=== PATIENT | male | born 1960 | race Caucasian/White ===

== ENCOUNTER 2018-09-17 09:00 | Outpatient (RCR) | payer OTHER, SELFPAY ==
--- NOTE | 2018-07-02 16:30 | PT.OIE ---
Current Diagnoses Calcific tendinitis of unspecified shoulder (07/02/18) Pain in unspecified hand (07/02/18) Provider Visit Care Team Role Provider Type Charbel Yoo MD Attending Provider Non-Staff Primary Care Provider Specialty: Medical Address: [address] [place] [address], [id number] Email: Physical Therapy Initial Evaluation PT-OP-A Visit Information Start: 06/29/18 16:02 Freq: Status: Active Protocol: Document 07/02/18 09:03 LRN (Rec: 07/02/18 10:01 LRN [id number]) Out-Patient Physical Therapy Visit Information Visit Information Visit Type Initial Evaluation Visit Start Time 09:03 Visit Stop Time 10:00 Total Visit Minutes 57 Visit Number 1 Number of HOUSE OFFICER Visits 0 Evaluation Information Evaluation Date 07/02/18 Precautions Precautions Diabetes type II Controlled HBP PT-OP-B Current Condition Start: 06/29/18 16:02 Freq: Status: Active Protocol: Document 07/02/18 09:03 LRN (Rec: 07/02/18 10:01 LRN [id number]) Current Condition History of Current Condition Onset Date 1.5 yrs ago Current Complaints General pain in Trey hand, joints, wrist, and shoulders. Can't make a fist. History of Current Condition Pt reports diffuse pain in the bilateral hand/wrist. He reports similar symptoms to trey shoulders 2.5 yrs ago when he was started on statin medications. He had diffuse pain in the shoulders and pain around the shoulder joints with AB. He states he stopped taking Crestor in May 2017 and restarted in Jan 2018 because of no improvement with stopping of the statin medication. He reports having 2 cortisone injections in the shoulders with a positive response and pain relief for 1 month following the last injection. He denies any injuries to the neck or UE's. He does not notice swelling in the hands and states he has had no change in diet. He is on a low carb diet due to his diabetes. He does state that his blood sugars have increased since the holidays 2 months ago. Prior Treatments and Tests Rheumatology testing 2 months ago were negative, all tests were normal. Pt reports X-rays of shoulder showed bilateral calcific tendinitis. Future Testing and Treatments Planned None. Developmental History Developmental History Family MD. Fajardo. Treatment Goals Patient/Caregiver Goals Goal: turn off bedside light without pain, open a jar without pain. ADLS without pain (dressing). Prior Functional Status Baseline Function- ADL's Independent Baseline Function- Mobility Independent Current Functional Impairments (Reported) Functional Limitations- ADL's Dressing, carrying objects, opening jars, activities that involve use of hand Personal Factors Other Personal Factors That May Effect Family physician Therapy/Recovery Diabetes type II PT-OP-E Functional Tests Start: 06/29/18 16:02 Freq: Status: Active Protocol: Document 07/02/18 09:03 LRN (Rec: 07/02/18 16:20 LRN [id number]) Functional Tests Apley's Scratch Test Action 1: The subject is instructed to touch the opposite shoulder with his/her hand. This motion checks Glenohumeral adduction, internal rotation , horizontal adduction and scapular protraction Action 2: The subject is instructed to place his/her arm overhead and reach behind the neck to touch his/her upper back. This motion checks Glenohumeral abduction, external rotation and scapular upward rotation and elevation. Action 3: The subject puts his/her hand on the lower back and reaches upward as far as possible. This motion checks glenohumeral adduction, internal rotation and scapular retraction with downward rotation Action 2- Left Subocciptal Protuberance Action 2- Right Subocciptal Protuberance Action 3- Left Mid Sacrum Action 3- Right Mid Sacrum PT-OP-F Manual Assessment Start: 06/29/18 16:02 Freq: Status: Active Protocol: Document 07/02/18 09:03 LRN (Rec: 07/02/18 16:20 LRN [id number]) Manual Assessments Joint Mobility Assessment Joint Mobility Assessment Hyper mobility of L Glenohumeral joint. Decreased mobility of Thoracic upper spine. Decreased mobility of finger and thumb joints (MCP's, PIP's , DIP's), Decreased mobility of wrist joints. PT-OP-H Neuro Start: 06/29/18 16:02 Freq: Status: Active Protocol: Document 07/02/18 09:03 LRN (Rec: 07/02/18 16:20 LRN [id number]) Sensation Evaluation Gross Sensation Gross Sensation WNL Deep Tendon Reflex & Clonus Assessment Deep Tendon Reflex Right Brachioradialis Deep Tendon Reflex 0 Absent Right Bicep Deep Tendon Reflex 0 Absent Left Brachioradialis Deep Tendon Reflex 1+ Diminished Left Bicep Deep Tendon Reflex 1+ Diminished Bilateral Tricep Deep Tendon Reflex 0 Absent PT-OP-J Posture/Palpation/Skin Start: 06/29/18 16:02 Freq: Status: Active Protocol: Document 07/02/18 09:03 LRN (Rec: 07/02/18 16:20 LRN [id number]) Posture Evaluation Comments Posture Comments Low L shoulder & scapula, decreased curvature of cervical, thoracic and lumbar spine. Flattened upper thoracic spine with notable Dowagers hump. Mild forward head, arms in internal rotation. PT-OP-K Range of Motion Start: 06/29/18 16:02 Freq: Status: Active Protocol: Document 07/02/18 09:03 LRN (Rec: 07/02/18 16:20 LRN [id number]) Cervical Spine Range of Motion Cervical Spine Active Degrees Rotation Left 60 Rotation Right 65 ROM Limitations Soft Tissue Tightness Comments Flexion & Extension is WNL Shoulder Goniometric Range of Motion Shoulder Measured in Degrees Left Active Testing Position Sitting Flexion 160 Abduction 160 Internal Rotation Behind Back (text) Mid Sacrum Shoulder ROM Limitations Comments In Supine: Shoulder: AROM: ER is 45 deg's left, 50 deg's right. IR is 45 deg's left, 45 deg's right. Wrist Goniometric Range of Motion Wrist Measured in Degrees Right Extension Active (degrees) 45 Left Extension Active (degrees) 30 ROM Limitations Wrist Limitations of Range of Motion Soft Tissue Tightness Pain Comments Wrist AROM: Generally decreased on 25-50% left, 25% right. Finger Goniometric Range of Motion Finger ROM Limitations Finger ROM Limitations Soft Tissue Tightness Pain Comments Pt unable to make a fist bilaterally. Thumb Goniometric Range of Motion Thumb ROM Limitations Thumb Range of Motion Limitations Soft Tissue Tightness Pain Comments Decreased PROM ~25-40%, left worse than right. PT-OP-L Special Tests Start: 06/29/18 16:02 Freq: Status: Active Protocol: Document 07/02/18 09:03 LRN (Rec: 07/02/18 16:20 LRN [id number]) Special Tests Cervical Spine Special Tests Upper Limb Tension Test Test Results Positive bilaterally Traction Test Results Negative Foraminal Compression Test Results Negative Shoulder Special Tests Elevation Impingement Test Results Positive bilaterally PT-OP-M Strength Start: 06/29/18 16:02 Freq: Status: Active Protocol: Document 07/02/18 09:03 LRN (Rec: 07/02/18 16:20 LRN [id number]) Cervical Spine Strength Cervical Spine Manual Muscle Testing Testing Position Sitting Reason Not Measured WFL Shoulder Strength Shoulder Manual Muscle Testing Right Comments Generally 5/5 Left Internal Rotation 5 Normal Comments Generally 4-/5, except as noted above Wrist Strength Wrist Manual Muscle Testing Right Reason Not Measured WFL Left Reason Not Measured WFL Pain Comments Shaking of UE limb with MMT. Finger/Thumb Strength Finger Manual Muscle Testing Right Thumb Reason Not Measured WFL Comments Generally 5/5, Opposition is 5 /5. Left Thumb Comments Generally 5/5 except Opposition is 4-/5 except with 5th digit is 3/5. Hand Fleet Manager/Dispatch/Pinch Strength Hand Dominance Hand Dominance Right PT-OP-Q Treatments Start: 06/29/18 16:02 Freq: Status: Active Protocol: Document 07/02/18 09:03 LRN (Rec: 07/02/18 16:20 LRN [id number]) Self-Care/Home Management Treatment Education Patient Education Home Exercise Program Activities Self-Care/Home Management Activities Reviewed and issued HEP: Bilateral: Median and Radial nerve stretch, Cervical Sidebend stretch for UT. PT-OP-T Assessment and Plan Start: 06/29/18 16:02 Freq: Status: Active Protocol: Document 07/02/18 09:03 LRN (Rec: 07/02/18 10:01 LRN [id number]) Physical Therapy Assessment Rehab Potential Rehabilitation Potential Good Evaluation Complexity Number of Personal Factors/Comorbidities 1-2 Number of Body Systems Impaired 4 or More Clinical Presentation at Evaluation Evolving Impairments Impairments Functional Activities Pain Posture ROM Sensation Soft Tissue Mobility Strength Other Concerns Age Related Concerns Impact on work and social environment. 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 Diabetes, type II Goals Wrist/hand strength Impairment Decreased wrist/hand strength. Short Term Goal (STG) Pt will be independent on wrist/hand strengthening HEP STG Duration 07/09/18 Fdc Goal (LTG) Improve forearm/wrist/panel flow machine operator strength such that the pt will be able to remove jar lids with mild difficulty. 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 LTG Duration 10/01/18 Wrist PROM Impairment Decreased bilateral wrist mobility (L>R) Short Term Goal (STG) Pt will be independent on an initial HEP to restore wrist/ forearm mobility. Fdc Goal (LTG) Improve wrist and shoulder mobility such that the pt will be able to turn off his bedside light without pain. LTG Duration 10/01/18 Shoulder ROM Impairment Decreased AROM Short Term Goal (STG) Pt will be independent on a ROM HEP for the shoulders. STG Duration 07/16/18 Fdc Goal (LTG) Improve bilateral shoulder mobility such that the pt will be able to don jacket and clothes with pain no greater than 1/10. LTG Duration 10/01/18 Assessment Summary Assessment Pt presents with limited bilateral UE mobility of the neck, shoulders, wrists and hands. He has decreased strength of the L UE compared to the right with difficulty holding a sustained smooth contraction against resistance on the left, indicating weakness or possible neural involvement. The pt appears to have a mechanical dysfunction of the lower cervical and upper thoracic spine and soft tissue dysfunction of the neck, shoulders, wrists and hands limiting mobility and probably strength. He demonstrates + neural tension in the UE's with the left being worse than the right. He is positive for impingement syndrome and demonstrates decreased mobility of his shoulder external and internal rotators and decreased scapulohumeral rhythm (L worse than R). The pt will benefit from skilled physical therapy to improve neck and bilateral UE mobility and strength leading to improved functional ability, and to progress the pt with a shoulder rehabilitation program for rotator cuff and scapular stabilization strengthening. Typically therapy would be recommended 2x/week, but due to the pt's work schedule we will start with 1x/week and the pt focusing on progressing on a HEP. Physical Therapy Plan Frequency and Duration Frequency of Treatment 1x/Week Plan of Care Start Date 07/02/18 Plan of Care End Date 10/01/18 Therapeutic Interventions Therapeutic Interventions Aquatic Therapy Home Exercise Program Joint Mobilizations Manual Therapy Neuromuscular Re-education Patient/Caregiver Education Self-Care/Home Management Soft Tissue Mobilization Taping Therapeutic Activities Therapeutic Exercises Modalities Cold Pack/Ice Massage Electric Stimulation Hot Packs Iontophoresis Paraffin Bath Traction- Mechanical Ultrasound Next Visit Focus/Plan Next Note Type Treatment Note Next Visit Plan JMT/STM to neck and upper thoracic, checking VA prior to mobilization, panel flow machine operator strength check, review HEP (neural stretch and add ulnar stretch) , recheck ROM of finger joints , Paraffin Dip and ROM ex's with assessment of response to therapy.
--- NOTE | 2018-07-02 16:30 | PT.OPPOC ---
Current Diagnoses Calcific tendinitis of unspecified shoulder (07/02/18) Pain in unspecified hand (07/02/18) Provider Visit Care Team Role Provider Type Charbel Yoo MD Attending Provider Non-Staff Primary Care Provider Specialty: Medical Address: [address] [place] [address], [id number] Email: Plan Of Care PT-OP-T Assessment and Plan Start: 06/29/18 16:02 Freq: Status: Active Protocol: Document 07/02/18 09:03 LRN (Rec: 07/02/18 10:01 LRN [id number]) Physical Therapy Assessment Rehab Potential Rehabilitation Potential Good Evaluation Complexity Number of Personal Factors/Comorbidities 1-2 Number of Body Systems Impaired 4 or More Clinical Presentation at Evaluation Evolving Impairments Impairments Functional Activities Pain Posture ROM Sensation Soft Tissue Mobility Strength Other Concerns Age Related Concerns Impact on work and social environment. 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 Diabetes, type II Goals Wrist/hand strength Impairment Decreased wrist/hand strength. Short Term Goal (STG) Pt will be independent on wrist/hand strengthening HEP STG Duration 07/09/18 Solids Control Technician Goal (LTG) Improve forearm/wrist/education and outreach coordinator strength such that the pt will be able to remove jar lids with mild difficulty. LTG Duration 10/01/18 Finger mobility Impairment Decreased finger mobility by 25-50% bilaterally (L>R) Solids Control Technician Goal (LTG) Improve finger flexion mobility of digits 1-5 to normal PROM with end-range stiffness so the pt can education and outreach coordinator jar lids at home without increased pain. LTG Duration 10/01/18 Wrist PROM Impairment Decreased bilateral wrist mobility (L>R) Short Term Goal (STG) Pt will be independent on an initial HEP to restore wrist/ forearm mobility. Senior Care Goal (LTG) Improve wrist and shoulder mobility such that the pt will be able to turn off his bedside light without pain. LTG Duration 10/01/18 Shoulder ROM Impairment Decreased AROM Short Term Goal (STG) Pt will be independent on a ROM HEP for the shoulders. STG Duration 07/16/18 Senior Care Goal (LTG) Improve bilateral shoulder mobility such that the pt will be able to don jacket and clothes with pain no greater than 1/10. LTG Duration 10/01/18 Assessment Summary Assessment Pt presents with limited bilateral UE mobility of the neck, shoulders, wrists and hands. He has decreased strength of the L UE compared to the right with difficulty holding a sustained smooth contraction against resistance on the left, indicating weakness or possible neural involvement. The pt appears to have a mechanical dysfunction of the lower cervical and upper thoracic spine and soft tissue dysfunction of the neck, shoulders, wrists and hands limiting mobility and probably strength. He demonstrates + neural tension in the UE's with the left being worse than the right. He is positive for impingement syndrome and demonstrates decreased mobility of his shoulder external and internal rotators and decreased scapulohumeral rhythm (L worse than R). The pt will benefit from skilled physical therapy to improve neck and bilateral UE mobility and strength leading to improved functional ability, and to progress the pt with a shoulder rehabilitation program for rotator cuff and scapular stabilization strengthening. Typically therapy would be recommended 2x/week, but due to the pt's work schedule we will start with 1x/week and the pt focusing on progressing on a HEP. Physical Therapy Plan Frequency and Duration Frequency of Treatment 1x/Week Plan of Care Start Date 07/02/18 Plan of Care End Date 10/01/18 Therapeutic Interventions Therapeutic Interventions Aquatic Therapy Home Exercise Program Joint Mobilizations Manual Therapy Neuromuscular Re-education Patient/Caregiver Education Self-Care/Home Management Soft Tissue Mobilization Taping Therapeutic Activities Therapeutic Exercises Modalities Cold Pack/Ice Massage Electric Stimulation Hot Packs Iontophoresis Paraffin Bath Traction- Mechanical Ultrasound Next Visit Focus/Plan Next Note Type Treatment Note Next Visit Plan JMT/STM to neck and upper thoracic, checking VA prior to mobilization, education and outreach coordinator strength check, review HEP (neural stretch and add ulnar stretch) , recheck ROM of finger joints , Paraffin Dip and ROM ex's with assessment of response to therapy. Plan of Care Dates Plan of Care Start Date 07/02/18 Plan of Care End Date 10/01/18 Please Sign and Return: I have reviewed this Plan of Care and certify that the skilled therapy services above are required to meet the patient?s needs. Physician Signature Date Printed Name and Credentials Clinical Instructor Signature Printed Name and Credentials
--- NOTE | 2018-07-02 16:30 | PT.OPPOC ---
Current Diagnoses Muscle weakness (generalized) (07/02/18) Calcific tendinitis of unspecified shoulder (07/02/18) Pain in unspecified hand (07/02/18) Other symptoms and signs involving the musculoskeletal system (07/02/18) Provider Visit Care Team Role Provider Type Charbel Yoo MD Attending Provider Non-Staff Primary Care Provider Specialty: Medical Address: [address] [place] [address], [facility] Email: Plan Of Care PT-OP-T Assessment and Plan Start: 06/29/18 16:02 Freq: Status: Active Protocol: Document 07/02/18 09:03 LRN (Rec: 07/02/18 10:01 LRN [id number]) Physical Therapy Assessment Rehab Potential Rehabilitation Potential Good Evaluation Complexity Number of Personal Factors/Comorbidities 1-2 Number of Body Systems Impaired 4 or More Clinical Presentation at Evaluation Evolving Impairments Impairments Functional Activities Pain Posture ROM Sensation Soft Tissue Mobility Strength Other Concerns Age Related Concerns Impact on work and social environment. 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 Diabetes, type II Goals Wrist/hand strength Impairment Decreased wrist/hand strength. Short Term Goal (STG) Pt will be independent on wrist/hand strengthening HEP STG Duration 07/09/18 Long-Term Goal (LTG) Improve forearm/wrist/construction technician strength such that the pt will be able to remove jar lids with mild difficulty. LTG Duration 10/01/18 Finger mobility Impairment Decreased finger mobility by 25-50% bilaterally (L>R) Production Honing Machine Operator Goal (LTG) Improve finger flexion mobility of digits 1-5 to normal PROM with end-range stiffness so the pt can construction technician jar lids at home without increased pain. LTG Duration 10/01/18 Wrist PROM Impairment Decreased bilateral wrist mobility (L>R) Short Term Goal (STG) Pt will be independent on an initial HEP to restore wrist/ forearm mobility. Long-Term Goal (LTG) Improve wrist and shoulder mobility such that the pt will be able to turn off his bedside light without pain. LTG Duration 10/01/18 Shoulder ROM Impairment Decreased AROM Short Term Goal (STG) Pt will be independent on a ROM HEP for the shoulders. STG Duration 07/16/18 Long-Term Goal (LTG) Improve bilateral shoulder mobility such that the pt will be able to don jacket and clothes with pain no greater than 1/10. LTG Duration 10/01/18 Assessment Summary Assessment Pt presents with limited bilateral UE mobility of the neck, shoulders, wrists and hands. He has decreased strength of the L UE compared to the right with difficulty holding a sustained smooth contraction against resistance on the left, indicating weakness or possible neural involvement. The pt appears to have a mechanical dysfunction of the lower cervical and upper thoracic spine and soft tissue dysfunction of the neck, shoulders, wrists and hands limiting mobility and probably strength. He demonstrates + neural tension in the UE's with the left being worse than the right. He is positive for impingement syndrome and demonstrates decreased mobility of his shoulder external and internal rotators and decreased scapulohumeral rhythm (L worse than R). The pt will benefit from skilled physical therapy to improve neck and bilateral UE mobility and strength leading to improved functional ability, and to progress the pt with a shoulder rehabilitation program for rotator cuff and scapular stabilization strengthening. Typically therapy would be recommended 2x/week, but due to the pt's work schedule we will start with 1x/week and the pt focusing on progressing on a HEP. Physical Therapy Plan Frequency and Duration Frequency of Treatment 1x/Week Plan of Care Start Date 07/02/18 Plan of Care End Date 10/01/18 Therapeutic Interventions Therapeutic Interventions Aquatic Therapy Home Exercise Program Joint Mobilizations Manual Therapy Neuromuscular Re-education Patient/Caregiver Education Self-Care/Home Management Soft Tissue Mobilization Taping Therapeutic Activities Therapeutic Exercises Modalities Cold Pack/Ice Massage Electric Stimulation Hot Packs Iontophoresis Paraffin Bath Traction- Mechanical Ultrasound Next Visit Focus/Plan Next Note Type Treatment Note Next Visit Plan JMT/STM to neck and upper thoracic, checking VA prior to mobilization, construction technician strength check, review HEP (neural stretch and add ulnar stretch) , recheck ROM of finger joints , Paraffin Dip and ROM ex's with assessment of response to therapy. Plan of Care Dates Plan of Care Start Date 07/02/18 Plan of Care End Date 10/01/18 Please Sign and Return: I have reviewed this Plan of Care and certify that the skilled therapy services above are required to meet the patient?s needs. Physician Signature Date Printed Name and Credentials Clinical Instructor Signature Printed Name and Credentials
--- NOTE | 2018-07-02 16:30 | PT.OIE ---
Current Diagnoses Muscle weakness (generalized) (07/02/18) Calcific tendinitis of unspecified shoulder (07/02/18) Pain in unspecified hand (07/02/18) Other symptoms and signs involving the musculoskeletal system (07/02/18) Provider Visit Care Team Role Provider Type Charbel Yoo MD Attending Provider Non-Staff Primary Care Provider Specialty: Medical Address: [address] [place] [address], [facility] Email: Physical Therapy Initial Evaluation PT-OP-A Visit Information Start: 06/29/18 16:02 Freq: Status: Active Protocol: Document 07/02/18 09:03 LRN (Rec: 07/02/18 10:01 LRN [id number]) Out-Patient Physical Therapy Visit Information Visit Information Visit Type Initial Evaluation Visit Start Time 09:03 Visit Stop Time 10:00 Total Visit Minutes 57 Visit Number 1 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 Can't make a fist. History of Current Condition Pt reports diffuse pain in the bilateral hand/wrist. He reports similar symptoms to trey shoulders 2.5 yrs ago when he was started on statin medications. He had diffuse pain in the shoulders and pain around the shoulder joints with AB. He states he stopped taking Crestor in May 2017 and restarted in Jan 2018 because of no improvement with stopping of the statin medication. He reports having 2 cortisone injections in the shoulders with a positive response and pain relief for 1 month following the last injection. He denies any injuries to the neck or UE's. He does not notice swelling in the hands and states he has had no change in diet. He is on a low carb diet due to his diabetes. He does state that his blood sugars have increased since the holidays 2 months ago. Prior Treatments and Tests Rheumatology testing 2 months ago were negative, all tests were normal. Pt reports X-rays of shoulder showed bilateral calcific tendinitis. Future Testing and Treatments Planned None. Developmental History Developmental History Family MD. Fajardo. Treatment Goals Patient/Caregiver Goals Goal: turn off bedside light without pain, open a jar without pain. ADLS without pain (dressing). Prior Functional Status Baseline Function- ADL's Independent Baseline Function- Mobility Independent Current Functional Impairments (Reported) Functional Limitations- ADL's Dressing, carrying objects, opening jars, activities that involve use of hand Personal Factors Other Personal Factors That May Effect Family physician Therapy/Recovery Diabetes type II PT-OP-E Functional Tests Start: 06/29/18 16:02 Freq: Status: Active Protocol: Document 07/02/18 09:03 LRN (Rec: 07/02/18 16:20 LRN [id number]) Functional Tests Apley's Scratch Test Action 1: The subject is instructed to touch the opposite shoulder with his/her hand. This motion checks Glenohumeral adduction, internal rotation , horizontal adduction and scapular protraction Action 2: The subject is instructed to place his/her arm overhead and reach behind the neck to touch his/her upper back. This motion checks Glenohumeral abduction, external rotation and scapular upward rotation and elevation. Action 3: The subject puts his/her hand on the lower back and reaches upward as far as possible. This motion checks glenohumeral adduction, internal rotation and scapular retraction with downward rotation Action 2- Left Subocciptal Protuberance Action 2- Right Subocciptal Protuberance Action 3- Left Mid Sacrum Action 3- Right Mid Sacrum PT-OP-F Manual Assessment Start: 06/29/18 16:02 Freq: Status: Active Protocol: Document 07/02/18 09:03 LRN (Rec: 07/02/18 16:20 LRN [id number]) Manual Assessments Joint Mobility Assessment Joint Mobility Assessment Hyper mobility of L Glenohumeral joint. Decreased mobility of Thoracic upper spine. Decreased mobility of finger and thumb joints (MCP's, PIP's , DIP's), Decreased mobility of wrist joints. PT-OP-H Neuro Start: 06/29/18 16:02 Freq: Status: Active Protocol: Document 07/02/18 09:03 LRN (Rec: 07/02/18 16:20 LRN [id number]) Sensation Evaluation Gross Sensation Gross Sensation WNL Deep Tendon Reflex & Clonus Assessment Deep Tendon Reflex Right Brachioradialis Deep Tendon Reflex 0 Absent Right Bicep Deep Tendon Reflex 0 Absent Left Brachioradialis Deep Tendon Reflex 1+ Diminished Left Bicep Deep Tendon Reflex 1+ Diminished Bilateral Tricep Deep Tendon Reflex 0 Absent PT-OP-J Posture/Palpation/Skin Start: 06/29/18 16:02 Freq: Status: Active Protocol: Document 07/02/18 09:03 LRN (Rec: 07/02/18 16:20 LRN [id number]) Posture Evaluation Comments Posture Comments Low L shoulder & scapula, decreased curvature of cervical, thoracic and lumbar spine. Flattened upper thoracic spine with notable Dowagers hump. Mild forward head, arms in internal rotation. PT-OP-K Range of Motion Start: 06/29/18 16:02 Freq: Status: Active Protocol: Document 07/02/18 09:03 LRN (Rec: 07/02/18 16:20 LRN [id number]) Cervical Spine Range of Motion Cervical Spine Active Degrees Rotation Left 60 Rotation Right 65 ROM Limitations Soft Tissue Tightness Comments Flexion & Extension is WNL Shoulder Goniometric Range of Motion Shoulder Measured in Degrees Left Active Testing Position Sitting Flexion 160 Abduction 160 Internal Rotation Behind Back (text) Mid Sacrum Shoulder ROM Limitations Comments In Supine: Shoulder: AROM: ER is 45 deg's left, 50 deg's right. IR is 45 deg's left, 45 deg's right. Wrist Goniometric Range of Motion Wrist Measured in Degrees Right Extension Active (degrees) 45 Left Extension Active (degrees) 30 ROM Limitations Wrist Limitations of Range of Motion Soft Tissue Tightness Pain Comments Wrist AROM: Generally decreased on 25-50% left, 25% right. Finger Goniometric Range of Motion Finger ROM Limitations Finger ROM Limitations Soft Tissue Tightness Pain Comments Pt unable to make a fist bilaterally. Thumb Goniometric Range of Motion Thumb ROM Limitations Thumb Range of Motion Limitations Soft Tissue Tightness Pain Comments Decreased PROM ~25-40%, left worse than right. PT-OP-L Special Tests Start: 06/29/18 16:02 Freq: Status: Active Protocol: Document 07/02/18 09:03 LRN (Rec: 07/02/18 16:20 LRN [id number]) Special Tests Cervical Spine Special Tests Upper Limb Tension Test Test Results Positive bilaterally Traction Test Results Negative Foraminal Compression Test Results Negative Shoulder Special Tests Elevation Impingement Test Results Positive bilaterally PT-OP-M Strength Start: 06/29/18 16:02 Freq: Status: Active Protocol: Document 07/02/18 09:03 LRN (Rec: 07/02/18 16:20 LRN [id number]) Cervical Spine Strength Cervical Spine Manual Muscle Testing Testing Position Sitting Reason Not Measured WFL Shoulder Strength Shoulder Manual Muscle Testing Right Comments Generally 5/5 Left Internal Rotation 5 Normal Comments Generally 4-/5, except as noted above Wrist Strength Wrist Manual Muscle Testing Right Reason Not Measured WFL Left Reason Not Measured WFL Pain Comments Shaking of UE limb with MMT. Finger/Thumb Strength Finger Manual Muscle Testing Right Thumb Reason Not Measured WFL Comments Generally 5/5, Opposition is 5 /5. Left Thumb Comments Generally 5/5 except Opposition is 4-/5 except with 5th digit is 3/5. Hand [place]ombstone Setter/Pinch Strength Hand Dominance Hand Dominance Right PT-OP-Q Treatments Start: 06/29/18 16:02 Freq: Status: Active Protocol: Document 07/02/18 09:03 LRN (Rec: 07/02/18 16:20 LRN [id number]) Self-Care/Home Management Treatment Education Patient Education Home Exercise Program Activities Self-Care/Home Management Activities Reviewed and issued HEP: Bilateral: Median and Radial nerve stretch, Cervical Sidebend stretch for UT. PT-OP-T Assessment and Plan Start: 06/29/18 16:02 Freq: Status: Active Protocol: Document 07/02/18 09:03 LRMaday (Rec: 07/02/18 10:01 N [id number]) Physical Therapy Assessment Rehab Potential Rehabilitation Potential Good Evaluation Complexity Number of Personal Factors/Comorbidities 1-2 Number of Body Systems Impaired 4 or More Clinical Presentation at Evaluation Evolving Impairments Impairments Functional Activities Pain Posture ROM Sensation Soft Tissue Mobility Strength Other Concerns Age Related Concerns Impact on work and social environment. 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 Diabetes, type II Goals Wrist/hand strength Impairment Decreased wrist/hand strength. 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 LTG Duration 10/01/18 Wrist PROM Impairment Decreased bilateral wrist mobility (L>R) Short Term Goal (STG) Pt will be independent on an initial HEP to restore wrist/ forearm mobility. Mcc Goal (LTG) Improve wrist and shoulder mobility such that the pt will be able to turn off his bedside light without pain. LTG Duration 10/01/18 Shoulder ROM Impairment Decreased AROM Short Term Goal (STG) Pt will be independent on a ROM HEP for the shoulders. STG Duration 07/16/18 Mcc Goal (LTG) Improve bilateral shoulder mobility such that the pt will be able to don jacket and clothes with pain no greater than 1/10. LTG Duration 10/01/18 Assessment Summary Assessment Pt presents with limited bilateral UE mobility of the neck, shoulders, wrists and hands. He has decreased strength of the L UE compared to the right with difficulty holding a sustained smooth contraction against resistance on the left, indicating weakness or possible neural involvement. The pt appears to have a mechanical dysfunction of the lower cervical and upper thoracic spine and soft tissue dysfunction of the neck, shoulders, wrists and hands limiting mobility and probably strength. He demonstrates + neural tension in the UE's with the left being worse than the right. He is positive for impingement syndrome and demonstrates decreased mobility of his shoulder external and internal rotators and decreased scapulohumeral rhythm (L worse than R). The pt will benefit from skilled physical therapy to improve neck and bilateral UE mobility and strength leading to improved functional ability, and to progress the pt with a shoulder rehabilitation program for rotator cuff and scapular stabilization strengthening. Typically therapy would be recommended 2x/week, but due to the pt's work schedule we will start with 1x/week and the pt focusing on progressing on a HEP. Physical Therapy Plan Frequency and Duration Frequency of Treatment 1x/Week Plan of Care Start Date 07/02/18 Plan of Care End Date 10/01/18 Therapeutic Interventions Therapeutic Interventions Aquatic Therapy Home Exercise Program Joint Mobilizations Manual Therapy Neuromuscular Re-education Patient/Caregiver Education Self-Care/Home Management Soft Tissue Mobilization Taping Therapeutic Activities Therapeutic Exercises Modalities Cold Pack/Ice Massage Electric Stimulation Hot Packs Iontophoresis Paraffin Bath Traction- Mechanical Ultrasound Next Visit Focus/Plan Next Note Type Treatment Note Next Visit Plan JMT/STM to neck and upper thoracic, checking VA prior to mobilization, sales project coordinator strength check, review HEP (neural stretch and add ulnar stretch) , recheck ROM of finger joints , Paraffin Dip and ROM ex's with assessment of response to therapy.
--- NOTE | 2018-07-16 15:26 | PT.OTN ---
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 Can't make a fist. History of Current Condition Pt reports diffuse pain in the bilateral hand/wrist. He reports similar symptoms to trey shoulders 2.5 yrs ago when he was started on statin medications. He had diffuse pain in the shoulders and pain around the shoulder joints with AB. He states he stopped taking Crestor in May 2017 and restarted in Jan 2018 because of no improvement with stopping of the statin medication. He reports having 2 cortisone injections in the shoulders with a positive response and pain relief for 1 month following the last injection. He denies any injuries to the neck or UE's. He does not notice swelling in the hands and states he has had no change in diet. He is on a low carb diet due to his diabetes. He does state that his blood sugars have increased since the holidays 2 months ago. Prior Treatments and Tests Rheumatology testing 2 months ago were negative, all tests were normal. Pt reports X-rays of shoulder showed bilateral calcific tendinitis. Future Testing and Treatments Planned None. Developmental History Developmental History Family MD. Fajardo. Treatment Goals Patient/Caregiver Goals Goal: turn off bedside light without pain, open a jar without pain. ADLS without pain (dressing). Prior Functional Status Baseline Function- ADL's Independent Baseline Function- Mobility Independent Current Functional Impairments (Reported) Functional Limitations- ADL's Dressing, carrying objects, opening jars, activities that involve use of hand Personal Factors Other Personal Factors That May Effect Family physician Therapy/Recovery Diabetes type II PT-OP-C Subjective Start: 06/29/18 16:02 Freq: Status: Active Protocol: Document 07/16/18 08:17 LRN (Rec: 07/16/18 15:26 LRN [id number]) OP-PT Subjective Patient Comments Patient Comments States he had a [place] Stroke at age 41. States he has done his ex's but not consistent. Patient Questionnaires Quick Dash- Upper Extremity Quick Dash UE Score 29.54 Quick Dash UE Impairment 20 to 39% Impaired (Score 20- 39) OP-PT Pain Assessment Pain Assessment Grid Paper Pain Assessment Grid Completed Yes Comments Pain Comments Pain rating: Hands: Left 5/10, Right 2/10 Shoulders: Left 4/10, Right 4 -5/10 PT-OP-E Functional Tests Start: 06/29/18 16:02 Freq: Status: Active Protocol: Document 07/02/18 09:03 LRN (Rec: 07/02/18 16:20 LRN [id number]) Functional Tests Apley's Scratch Test Action 1: The subject is instructed to touch the opposite shoulder with his/her hand. This motion checks Glenohumeral adduction, internal rotation , horizontal adduction and scapular protraction Action 2: The subject is instructed to place his/her arm overhead and reach behind the neck to touch his/her upper back. This motion checks Glenohumeral abduction, external rotation and scapular upward rotation and elevation. Action 3: The subject puts his/her hand on the lower back and reaches upward as far as possible. This motion checks glenohumeral adduction, internal rotation and scapular retraction with downward rotation Action 2- Left Subocciptal Protuberance Action 2- Right Subocciptal Protuberance Action 3- Left Mid Sacrum Action 3- Right Mid Sacrum PT-OP-F Manual Assessment Start: 06/29/18 16:02 Freq: Status: Active Protocol: Document 07/02/18 09:03 LRN (Rec: 07/02/18 16:20 LRN [id number]) Manual Assessments Joint Mobility Assessment Joint Mobility Assessment Hyper mobility of L Glenohumeral joint. Decreased mobility of Thoracic upper spine. Decreased mobility of finger and thumb joints (MCP's, PIP's , DIP's), Decreased mobility of wrist joints. PT-OP-H Neuro Start: 06/29/18 16:02 Freq: Status: Active Protocol: Document 07/02/18 09:03 LRN (Rec: 07/02/18 16:20 LRN [id number]) Sensation Evaluation Gross Sensation Gross Sensation WNL Deep Tendon Reflex & Clonus Assessment Deep Tendon Reflex Right Brachioradialis Deep Tendon Reflex 0 Absent Right Bicep Deep Tendon Reflex 0 Absent Left Brachioradialis Deep Tendon Reflex 1+ Diminished Left Bicep Deep Tendon Reflex 1+ Diminished Bilateral Tricep Deep Tendon Reflex 0 Absent PT-OP-J Posture/Palpation/Skin Start: 06/29/18 16:02 Freq: Status: Active Protocol: Document 07/02/18 09:03 LRN (Rec: 07/02/18 16:20 LRN [id number]) Posture Evaluation Comments Posture Comments Low L shoulder & scapula, decreased curvature of cervical, thoracic and lumbar spine. Flattened upper thoracic spine with notable Dowagers hump. Mild forward head, arms in internal rotation. PT-OP-K Range of Motion Start: 06/29/18 16:02 Freq: Status: Active Protocol: Document 07/16/18 08:17 LRN (Rec: 07/16/18 09:34 LRN [id number]) Finger Goniometric Range of Motion Finger ROM Limitations Finger ROM Limitations Pain Swelling Comments After use of MH: L hand limited with finger flexion ~20% (DIP ~45 deg's, PIP ~75 deg's). R hand limited only in 3rd digit ~20% (DIP ~45 deg's, PIP ~90 deg's). PT-OP-L Special Tests Start: 06/29/18 16:02 Freq: Status: Active Protocol: Document 07/16/18 08:17 LRN (Rec: 07/16/18 15:18 LRN [id number]) Special Tests Cervical Spine Special Tests Vertebral Artery Test Results Negative bilaterally Comments Testing on the R limited due to scalene tightness PT-OP-M Strength Start: 06/29/18 16:02 Freq: Status: Active Protocol: Document 07/16/18 08:17 LRN (Rec: 07/16/18 09:34 LRN [id number]) Hand Healthcare Or Medical/Pinch Strength Hand Strength Right Comments 3 Trials: 38, 32, 32 kgs Left Comments 3 Trials: 12, 12, 16 kgs PT-OP-Q Treatments Start: 06/29/18 16:02 Freq: Status: Active Protocol: Document 07/16/18 08:17 LRN (Rec: 07/16/18 09:34 LRN [id number]) Therapeutic Exercises Supine Exercises Finger nerve gliding Supine Exercise Name Finger curl > table top Side bilateral Reps/Minutes 10' each Comments Active, Active Assisted Standing Exercises Neck stretch Standing Exercise Name Sidebend stretch Side left UE neural stretch Standing Exercise Name Median, Radial nerve stretch, added Ulnar stretch Side left Manual Therapy Treatment Joint Mobilizations Neck Joint C2, C3 Direction L sideglide & R rotation Grade II Body Position Supine L hand Joint Index, Middle: PIP, DIP Direction PA Grade II Body Position Supine Manual Traction Neck Details Axial traction Manual Techniques Scalene stretch Type Passive stretch Body Location Bilateral neck Body Position Supine Reps/Duration 5' R Hand Passive stretch Type Passive finger flexion Body Position Supine Reps/Duration 5' L Hand Passive stretch Type Passive finger flexion Body Location L hand Body Position Supine Reps/Duration 8' Comments Hand elevated Self-Care/Home Management Treatment Education Patient Education Home Exercise Program Activities Self-Care/Home Management Activities I/S and reviewed HEP: Finger nerve glides, 5-10 reps throughout the day. PT-OP-R Modalities Start: 06/29/18 16:02 Freq: Status: Active Protocol: Document 07/16/18 08:17 LRN (Rec: 07/16/18 09:34 LRN [id number]) Ultrasound Therapy Treatment Neck Treatment Duration (minutes) 8 Patient Position Sitting Coupling Medium Ultrasound Gel Mode Setting Continuous Duty Cycle 100% Intensity Setting (w/cm2) 1.8 PT-OP-T Assessment and Plan Start: 06/29/18 16:02 Freq: Status: Active Protocol: Document 07/16/18 08:17 LRN (Rec: 07/16/18 09:34 LRN [id number]) Physical Therapy Assessment Assessment Summary Assessment -V.Artery test bilaterally but R>L anterior scalene tightness noted. 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 His L hand is more swollen, but MH and elevation helped decreased swelling. He is more restricted in finger mobility of L hand, and only with primarily gripping due to PIP/DIP joint pain of digits 2>3. No tension noted in forearm muscle groups; therefore joint pain could be due to stiffness, swelling or neural involvement is possible . A nerve conduction study on the L UE would be beneficial in identifying if a neurological component is present in his condition. He has a mechanical dysfunction of the lower cervical and upper thoracic spine and soft tissue dysfunction of the neck, shoulders, wrists and hands limiting mobility and probably strength. + neural tension persists in the UE's left worse than the right. He is positive for impingement syndrome and demonstrates decreased mobility of his shoulder external and internal rotators and decreased scapulohumeral rhythm (L worse than R). Physical Therapy Plan Frequency and Duration Frequency of Treatment 1x/Week Plan of Care Start Date 07/02/18 Plan of Care End Date 10/01/18 Next Visit Focus/Plan Next Note Type Treatment Note Next Visit Plan 1x/week for advancement of self care program. Begin rotator cuff and SHR strengthening. Try starting paraffin dip of hands, add STM /JMT to lower neck and upper thoracic, review HEP (neural stretch and added ulnar stretch), recheck ROM of finger joints, assessment of response to therapy.
--- NOTE | 2018-07-30 16:28 | PT.OTN ---
Current Diagnoses Calcific tendinitis of unspecified shoulder (07/30/18) Pain in unspecified hand (07/30/18) Physical Therapy Treatment Note PT-OP-A Visit Information Start: 06/29/18 16:02 Freq: Status: Active Protocol: Document 07/30/18 09:02 LRN (Rec: 07/30/18 09:55 LRN [id number]) Out-Patient Physical Therapy Visit Information Visit Information Visit Type Treatment Note Visit Start Time 09:02 Visit Stop Time 09:53 Total Visit Minutes 51 Visit Number 3 Number of CUSTOM BIKE BUILDER Visits 0 Evaluation Information Evaluation Date 07/02/18 Precautions Precautions Diabetes type II Controlled HBP PT-OP-B Current Condition Start: 06/29/18 16:02 Freq: Status: Active Protocol: Document 07/02/18 09:03 LRN (Rec: 07/02/18 10:01 LRN [id number]) Current Condition History of Current Condition Onset Date 1.5 yrs ago Current Complaints General pain in Trey hand, joints, wrist, and shoulders. Can't make a fist. History of Current Condition Pt reports diffuse pain in the bilateral hand/wrist. He reports similar symptoms to trey shoulders 2.5 yrs ago when he was started on statin medications. He had diffuse pain in the shoulders and pain around the shoulder joints with AB. He states he stopped taking Crestor in May 2017 and restarted in Jan 2018 because of no improvement with stopping of the statin medication. He reports having 2 cortisone injections in the shoulders with a positive response and pain relief for 1 month following the last injection. He denies any injuries to the neck or UE's. He does not notice swelling in the hands and states he has had no change in diet. He is on a low carb diet due to his diabetes. He does state that his blood sugars have increased since the holidays 2 months ago. Prior Treatments and Tests Rheumatology testing 2 months ago were negative, all tests were normal. Pt reports X-rays of shoulder showed bilateral calcific tendinitis. Future Testing and Treatments Planned None. Developmental History Developmental History Family MD. Fajardo. Treatment Goals Patient/Caregiver Goals Goal: turn off bedside light without pain, open a jar without pain. ADLS without pain (dressing). Prior Functional Status Baseline Function- ADL's Independent Baseline Function- Mobility Independent Current Functional Impairments (Reported) Functional Limitations- ADL's Dressing, carrying objects, opening jars, activities that involve use of hand Personal Factors Other Personal Factors That May Effect Family physician Therapy/Recovery Diabetes type II PT-OP-C Subjective Start: 06/29/18 16:02 Freq: Status: Active Protocol: Document 07/30/18 09:02 LRN (Rec: 07/30/18 09:55 LRN [id number]) OP-PT Subjective Patient Comments Patient Comments Better neck mobility. Doing more exers at home. PT-OP-E Functional Tests Start: 06/29/18 16:02 Freq: Status: Active Protocol: Document 07/02/18 09:03 LRN (Rec: 07/02/18 16:20 LRN [id number]) Functional Tests Apley's Scratch Test Action 1: The subject is instructed to touch the opposite shoulder with his/her hand. This motion checks Glenohumeral adduction, internal rotation , horizontal adduction and scapular protraction Action 2: The subject is instructed to place his/her arm overhead and reach behind the neck to touch his/her upper back. This motion checks Glenohumeral abduction, external rotation and scapular upward rotation and elevation. Action 3: The subject puts his/her hand on the lower back and reaches upward as far as possible. This motion checks glenohumeral adduction, internal rotation and scapular retraction with downward rotation Action 2- Left Subocciptal Protuberance Action 2- Right Subocciptal Protuberance Action 3- Left Mid Sacrum Action 3- Right Mid Sacrum PT-OP-F Manual Assessment Start: 06/29/18 16:02 Freq: Status: Active Protocol: Document 07/02/18 09:03 LRN (Rec: 07/02/18 16:20 LRN [id number]) Manual Assessments Joint Mobility Assessment Joint Mobility Assessment Hyper mobility of L Glenohumeral joint. Decreased mobility of Thoracic upper spine. Decreased mobility of finger and thumb joints (MCP's, PIP's , DIP's), Decreased mobility of wrist joints. PT-OP-H Neuro Start: 06/29/18 16:02 Freq: Status: Active Protocol: Document 07/02/18 09:03 LRN (Rec: 07/02/18 16:20 LRN [id number]) Sensation Evaluation Gross Sensation Gross Sensation WNL Deep Tendon Reflex & Clonus Assessment Deep Tendon Reflex Right Brachioradialis Deep Tendon Reflex 0 Absent Right Bicep Deep Tendon Reflex 0 Absent Left Brachioradialis Deep Tendon Reflex 1+ Diminished Left Bicep Deep Tendon Reflex 1+ Diminished Bilateral Tricep Deep Tendon Reflex 0 Absent PT-OP-J Posture/Palpation/Skin Start: 06/29/18 16:02 Freq: Status: Active Protocol: Document 07/02/18 09:03 LRN (Rec: 07/02/18 16:20 LRN [id number]) Posture Evaluation Comments Posture Comments Low L shoulder & scapula, decreased curvature of cervical, thoracic and lumbar spine. Flattened upper thoracic spine with notable Dowagers hump. Mild forward head, arms in internal rotation. PT-OP-K Range of Motion Start: 06/29/18 16:02 Freq: Status: Active Protocol: Document 07/16/18 08:17 LRN (Rec: 07/16/18 09:34 LRN [id number]) Finger Goniometric Range of Motion Finger ROM Limitations Finger ROM Limitations Pain Swelling Comments After use of MH: L hand limited with finger flexion ~20% (DIP ~45 deg's, PIP ~75 deg's). R hand limited only in 3rd digit ~20% (DIP ~45 deg's, PIP ~90 deg's). PT-OP-L Special Tests Start: 06/29/18 16:02 Freq: Status: Active Protocol: Document 07/16/18 08:17 LRN (Rec: 07/16/18 15:18 LRN [id number]) Special Tests Cervical Spine Special Tests Vertebral Artery Test Results Negative bilaterally Comments Testing on the R limited due to scalene tightness PT-OP-M Strength Start: 06/29/18 16:02 Freq: Status: Active Protocol: Document 07/16/18 08:17 LRN (Rec: 07/16/18 09:34 LRN [id number]) Hand Dietary Worker/Pinch Strength Hand Strength Right Comments 3 Trials: 38, 32, 32 kgs Left Comments 3 Trials: 12, 12, 16 kgs PT-OP-Q Treatments Start: 06/29/18 16:02 Freq: Status: Active Protocol: Document 07/30/18 09:02 LRN (Rec: 07/30/18 16:21 LRN [id number]) Therapeutic Exercises Supine Exercises Elbow flex with fist expediter Side left Reps/Minutes 3' Active finger flex/ext Supine Exercise Name AROM after each stretch sequence Side bilateral Comments Self assisted and passive stretch prior to strengthening Finger nerve gliding Supine Exercise Name Finger curl > table top Side bilateral Reps/Minutes 10' each Comments Active, Active Assisted Standing Exercises Neck stretch Standing Exercise Name Sidebend stretch Side left Manual Therapy Treatment Joint Mobilizations Neck Joint C2, C3 Direction R rotation Grade II Body Position Supine Manual Traction Neck Details Axial traction Manual Techniques R Hand Passive stretch Type Passive finger flexion Body Position Supine Reps/Duration 5' L Hand Passive stretch Type Passive finger flexion Body Location L hand Body Position Supine Reps/Duration 8' Comments Hand elevated Self-Care/Home Management Treatment Education Patient Education Home Exercise Program Activities Self-Care/Home Management Activities Issued & reviewed: HEP of finger flides and Ulnar nerve stretch. Issued & reviewed: HEP of RC T -Band strengthening of shoulder ER/IR. PT-OP-R Modalities Start: 06/29/18 16:02 Freq: Status: Active Protocol: Document 07/30/18 09:02 LRN (Rec: 07/30/18 16:21 [facility] [id number]) Paraffin Bath Treatment Right Hand Treatment Technique Dip-immersion Number Wax Layers (layers) 8 Left Hand Treatment Technique Dip-immersion Number Wax Layers (layers) 8 Ultrasound Therapy Treatment Trey shoulder joints Treatment Duration (minutes) 10 Patient Position Sidelying Coupling Medium Ultrasound Gel Mode Setting Continuous Duty Cycle 100% Intensity Setting (w/cm2) 1.8 Comments 5' each side Neck Treatment Duration (minutes) 5 Patient Position Sitting Coupling Medium Ultrasound Gel Mode Setting Continuous Duty Cycle 100% Intensity Setting (w/cm2) 1.8 PT-OP-T Assessment and Plan Start: 06/29/18 16:02 Freq: Status: Active Protocol: Document 07/30/18 09:02 LRN (Rec: 07/30/18 16:21 N [id number]) Physical Therapy Assessment Assessment Summary Assessment Good tolerance and response to use of Paraffin Dip. R hand had full expediter motion and L hand had improved finger joint mobility. Hand weakness appears evident when fist making for isometric finger flexion exercise. He has a mechanical dysfunction of the lower cervical and upper thoracic spine. + neural tension persists in the UE's left worse than the right. He is positive for impingement syndrome and demonstrates decreased mobility of his shoulder external and internal rotators and decreased scapulohumeral rhythm (L worse than R). Physical Therapy Plan Frequency and Duration Frequency of Treatment 1x/Week Plan of Care Start Date 07/02/18 Plan of Care End Date 10/01/18 Next Visit Focus/Plan Next Note Type Treatment Note Next Visit Plan Assess response to use of paraffin wax, if + start paraffin dip of hands, add JMT to lower neck and upper thoracic, review HEP ulnar stretch and RC strengthening. Add shoulder ER/IR stretching & strengthening for proper SHR. Recheck finger joints ROM. Cont 1x/week for advancement of self care program.
--- NOTE | 2018-09-10 09:47 | PT.OTN ---
Current Diagnoses Calcific tendinitis of unspecified shoulder (09/10/18) Pain in unspecified hand (09/10/18) Physical Therapy Treatment Note PT-OP-A Visit Information Start: 06/29/18 16:02 Freq: Status: Active Protocol: Document 09/10/18 09:00 DCW (Rec: 09/10/18 09:46 DCW [id number]) Out-Patient Physical Therapy Visit Information Visit Information Visit Type Progress Note Visit Start Time 09:00 Visit Stop Time 09:50 Total Visit Minutes 50 Visit Number 4 Number of INDUSTRY SEGMENT SPECIALIST Visits 0 Evaluation Information Evaluation Date 07/02/18 Precautions Precautions Diabetes type II Controlled HBP PT-OP-B Current Condition Start: 06/29/18 16:02 Freq: Status: Active Protocol: Document 07/02/18 09:03 LRN (Rec: 07/02/18 10:01 LRN [id number]) Current Condition History of Current Condition Onset Date 1.5 yrs ago Current Complaints General pain in Trey hand, joints, wrist, and shoulders. Can't make a fist. History of Current Condition Pt reports diffuse pain in the bilateral hand/wrist. He reports similar symptoms to trey shoulders 2.5 yrs ago when he was started on statin medications. He had diffuse pain in the shoulders and pain around the shoulder joints with AB. He states he stopped taking Crestor in May 2017 and restarted in Jan 2018 because of no improvement with stopping of the statin medication. He reports having 2 cortisone injections in the shoulders with a positive response and pain relief for 1 month following the last injection. He denies any injuries to the neck or UE's. He does not notice swelling in the hands and states he has had no change in diet. He is on a low carb diet due to his diabetes. He does state that his blood sugars have increased since the holidays 2 months ago. Prior Treatments and Tests Rheumatology testing 2 months ago were negative, all tests were normal. Pt reports X-rays of shoulder showed bilateral calcific tendinitis. Future Testing and Treatments Planned None. Developmental History Developmental History Family MD. Fajardo. Treatment Goals Patient/Caregiver Goals Goal: turn off bedside light without pain, open a jar without pain. ADLS without pain (dressing). Prior Functional Status Baseline Function- ADL's Independent Baseline Function- Mobility Independent Current Functional Impairments (Reported) Functional Limitations- ADL's Dressing, carrying objects, opening jars, activities that involve use of hand Personal Factors Other Personal Factors That May Effect Family physician Therapy/Recovery Diabetes type II PT-OP-C Subjective Start: 06/29/18 16:02 Freq: Status: Active Protocol: Document 09/10/18 09:00 DCW (Rec: 09/10/18 09:46 DCW [id number]) OP-PT Subjective Patient Comments Patient Comments My neck and shoulders have been quite a bit better. My hands have even been a little better. PT-OP-E Functional Tests Start: 06/29/18 16:02 Freq: Status: Active Protocol: Document 09/10/18 09:00 DCW (Rec: 09/10/18 09:19 DCW [id number]) Functional Tests Apley's Scratch Test Action 1: The subject is instructed to touch the opposite shoulder with his/her hand. This motion checks Glenohumeral adduction, internal rotation , horizontal adduction and scapular protraction Action 2: The subject is instructed to place his/her arm overhead and reach behind the neck to touch his/her upper back. This motion checks Glenohumeral abduction, external rotation and scapular upward rotation and elevation. Action 3: The subject puts his/her hand on the lower back and reaches upward as far as possible. This motion checks glenohumeral adduction, internal rotation and scapular retraction with downward rotation Action 2- Left C6 Action 2- Right T1 Action 3- Left L3 Action 3- Right L1 PT-OP-F Manual Assessment Start: 06/29/18 16:02 Freq: Status: Active Protocol: Document 07/02/18 09:03 LRN (Rec: 07/02/18 16:20 LRN [id number]) Manual Assessments Joint Mobility Assessment Joint Mobility Assessment Hyper mobility of L Glenohumeral joint. Decreased mobility of Thoracic upper spine. Decreased mobility of finger and thumb joints (MCP's, PIP's , DIP's), Decreased mobility of wrist joints. PT-OP-H Neuro Start: 06/29/18 16:02 Freq: Status: Active Protocol: Document 07/02/18 09:03 LRN (Rec: 07/02/18 16:20 LRN [id number]) Sensation Evaluation Gross Sensation Gross Sensation WNL Deep Tendon Reflex & Clonus Assessment Deep Tendon Reflex Right Brachioradialis Deep Tendon Reflex 0 Absent Right Bicep Deep Tendon Reflex 0 Absent Left Brachioradialis Deep Tendon Reflex 1+ Diminished Left Bicep Deep Tendon Reflex 1+ Diminished Bilateral Tricep Deep Tendon Reflex 0 Absent PT-OP-J Posture/Palpation/Skin Start: 06/29/18 16:02 Freq: Status: Active Protocol: Document 07/02/18 09:03 LRN (Rec: 07/02/18 16:20 LRN [id number]) Posture Evaluation Comments Posture Comments Low L shoulder & scapula, decreased curvature of cervical, thoracic and lumbar spine. Flattened upper thoracic spine with notable Dowagers hump. Mild forward head, arms in internal rotation. PT-OP-K Range of Motion Start: 06/29/18 16:02 Freq: Status: Active Protocol: Document 09/10/18 09:00 DCW (Rec: 09/10/18 09:19 DCW [id number]) Cervical Spine Range of Motion Cervical Spine Active Degrees Rotation Left 70 Rotation Right 65 Comments Flexion & Extension is WNL Shoulder Goniometric Range of Motion Shoulder Measured in Degrees Left Active Testing Position Sitting Flexion 180 Abduction 170 Internal Rotation Behind Back (text) L3 Finger Goniometric Range of Motion Finger ROM Limitations Comments Pt able to make fist bilaterally Thumb Goniometric Range of Motion Thumb ROM Limitations Comments WNL PT-OP-L Special Tests Start: 06/29/18 16:02 Freq: Status: Active Protocol: Document 07/16/18 08:17 LRN (Rec: 07/16/18 15:18 LRN [id number]) Special Tests Cervical Spine Special Tests Vertebral Artery Test Results Negative bilaterally Comments Testing on the R limited due to scalene tightness PT-OP-M Strength Start: 06/29/18 16:02 Freq: Status: Active Protocol: Document 09/10/18 09:00 DCW (Rec: 09/10/18 09:19 DCW [id number]) Finger/Thumb Strength Finger Manual Muscle Testing Left Thumb Comments 5/5 Hand Screwhead Polisher/Pinch Strength Hand Strength Right Comments 3 Trials: 24, 30, 26 kgs Left Comments 3 Trials: 32, 28, 24 kgs PT-OP-Q Treatments Start: 06/29/18 16:02 Freq: Status: Active Protocol: Document 09/10/18 09:00 DCW (Rec: 09/10/18 09:46 DCW [id number]) Therapeutic Exercises Supine Exercises Thera-putty Supine Exercise Name Full Screwhead Polisher, Individual Finger Screwhead Polisher, Finger Extension Side bilateral Resistance Green Manual Therapy Treatment Soft Tissue Mobilization Upper Trap Body Location Upper Trap STM Mobilization Type Strumming Sustained Pressure Comments R tighter than L Joint Mobilizations Neck Joint C2, C3 Direction L sideglide & R rotation Grade II Body Position Supine Manual Traction Neck Details Axial traction PT-OP-R Modalities Start: 06/29/18 16:02 Freq: Status: Active Protocol: Document 09/10/18 09:00 DCW (Rec: 09/10/18 09:46 DCW [id number]) Paraffin Bath Treatment Right Hand Treatment Technique Dip-immersion Number Wax Layers (layers) 8 Left Hand Treatment Technique Dip-immersion Number Wax Layers (layers) 8 PT-OP-T Assessment and Plan Start: 06/29/18 16:02 Freq: Status: Active Protocol: Document 09/10/18 09:00 DCW (Rec: 09/10/18 09:46 DCW [id number]) Physical Therapy Assessment Impairments Impairments Functional Activities Pain Posture ROM Sensation Soft Tissue Mobility Strength Goals Wrist/hand strength Impairment Decreased wrist/hand strength. 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 LTG Duration 10/01/18 Finger mobility Impairment Decreased finger mobility by 25-50% bilaterally (L>R) Nursing Home Goal (LTG) Improve finger flexion mobility of digits 1-5 to normal PROM with end-range stiffness so the pt can life insurance sales jar lids at home without increased pain. LTG Duration 10/01/18 Wrist PROM Impairment Decreased bilateral wrist mobility (L>R) Short Term Goal (STG) Pt will be independent on an initial HEP to restore wrist/ forearm mobility. STG Duration Met Nursing Home Goal (LTG) Improve wrist and shoulder mobility such that the pt will be able to turn off his bedside light without pain. LTG Duration 10/01/18 Shoulder ROM Impairment Decreased AROM Short Term Goal (STG) Pt will be independent on a ROM HEP for the shoulders. STG Duration Met Nursing Home Goal (LTG) Improve bilateral shoulder mobility such that the pt will be able to don jacket and clothes with pain no greater than 1/10. LTG Duration 10/01/18 Assessment Summary Assessment Pt has made excellent progress so far, noticeable improvement in his shoulders and hands. 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 Pt's shoulder mobility has also improved greatly, increased his appley scratch test score in all directions. Physical Therapy Plan Frequency and Duration Frequency of Treatment 1x/Week Duration of Treatment 10 weeks Plan of Care Start Date 09/10/18 Plan of Care End Date 11/19/18 Therapeutic Interventions Therapeutic Interventions Aquatic Therapy Home Exercise Program Joint Mobilizations Manual Therapy Neuromuscular Re-education Patient/Caregiver Education Self-Care/Home Management Soft Tissue Mobilization Taping Therapeutic Activities Therapeutic Exercises Modalities Cold Pack/Ice Massage Electric Stimulation Hot Packs Iontophoresis Paraffin Bath Traction- Mechanical Ultrasound Next Visit Focus/Plan Next Note Type Treatment Note Next Visit Plan Add JMT to lower neck and upper thoracic, review HEP ulnar stretch and RC strengthening. Add shoulder ER/IR stretching & strengthening for proper SHR. Recheck finger joints ROM. Cont 1x/week for advancement of self care program.
--- NOTE | 2018-09-10 09:47 | PT.OPPOC ---
Current Diagnoses Calcific tendinitis of unspecified shoulder (09/10/18) Pain in unspecified hand (09/10/18) Provider Visit Care Team Role Provider Type Charbel Yoo MD Attending Provider Non-Staff Primary Care Provider Specialty: Medical Address: [address] [place] [address], [id number] Email: Plan Of Care PT-OP-T Assessment and Plan Start: 06/29/18 16:02 Freq: Status: Active Protocol: Document 09/10/18 09:00 DCW (Rec: 09/10/18 09:46 DCW [id number]) Physical Therapy Assessment Impairments Impairments Functional Activities Pain Posture ROM Sensation Soft Tissue Mobility Strength Goals Wrist/hand strength Impairment Decreased wrist/hand strength. 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 LTG Duration 10/01/18 Wrist PROM Impairment Decreased bilateral wrist mobility (L>R) Short Term Goal (STG) Pt will be independent on an initial HEP to restore wrist/ forearm mobility. STG Duration Met Halftone Operator Goal (LTG) Improve wrist and shoulder mobility such that the pt will be able to turn off his bedside light without pain. LTG Duration 10/01/18 Shoulder ROM Impairment Decreased AROM Short Term Goal (STG) Pt will be independent on a ROM HEP for the shoulders. STG Duration Met [facility] Goal (LTG) Improve bilateral shoulder mobility such that the pt will be able to don jacket and clothes with pain no greater than 1/10. LTG Duration 10/01/18 Assessment Summary Assessment Pt has made excellent progress so far, noticeable improvement in his shoulders and hands. 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 Pt's shoulder mobility has also improved greatly, increased his appley scratch test score in all directions. Physical Therapy Plan Frequency and Duration Frequency of Treatment 1x/Week Duration of Treatment 10 weeks Plan of Care Start Date 09/10/18 Plan of Care End Date 11/19/18 Therapeutic Interventions Therapeutic Interventions Aquatic Therapy Home Exercise Program Joint Mobilizations Manual Therapy Neuromuscular Re-education Patient/Caregiver Education Self-Care/Home Management Soft Tissue Mobilization Taping Therapeutic Activities Therapeutic Exercises Modalities Cold Pack/Ice Massage Electric Stimulation Hot Packs Iontophoresis Paraffin Bath Traction- Mechanical Ultrasound Next Visit Focus/Plan Next Note Type Treatment Note Next Visit Plan Add JMT to lower neck and upper thoracic, review HEP ulnar stretch and RC strengthening. Add shoulder ER/IR stretching & strengthening for proper SHR. Recheck finger joints ROM. Cont 1x/week for advancement of self care program. Plan of Care Dates Plan of Care Start Date 09/10/18 Plan of Care End Date 11/19/18 Please Sign and Return: I have reviewed this Plan of Care and certify that the skilled therapy services above are required to meet the patient?s needs. Physician Signature Date Printed Name and Credentials Clinical Instructor Signature Printed Name and Credentials
--- NOTE | 2019-05-06 16:49 | PT-OP ANOTE ---
Per phone conversation the pt reports his shoulder feels great and that his EMG study showed he had carpel tunnel, but surgery is not needed at this time. 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 He didn't feel he needed more therapy.
--- NOTE | 2019-05-06 16:56 | PT.OPDS ---
Current Diagnoses Calcific tendinitis of unspecified shoulder (09/17/18) Pain in unspecified hand (09/17/18) Visit Care Team Role Provider Type Charbel Yoo MD Attending Provider Non-Staff Primary Care Provider Specialty: Medical Address: [address] [place] [address], [id number] Email: Visit Number Visit Number 5 Discharge Summary PT-OP-B Current Condition Start: 06/29/18 16:02 Freq: Status: Active Protocol: Document 07/02/18 09:03 LRN (Rec: 07/02/18 10:01 LRN [id number]) Current Condition History of Current Condition Onset Date 1.5 yrs ago Current Complaints General pain in Trey hand, joints, wrist, and shoulders. Can't make a fist. History of Current Condition Pt reports diffuse pain in the bilateral hand/wrist. He reports similar symptoms to trey shoulders 2.5 yrs ago when he was started on statin medications. He had diffuse pain in the shoulders and pain around the shoulder joints with AB. He states he stopped taking Crestor in May 2017 and restarted in Jan 2018 because of no improvement with stopping of the statin medication. He reports having 2 cortisone injections in the shoulders with a positive response and pain relief for 1 month following the last injection. He denies any injuries to the neck or UE's. He does not notice swelling in the hands and states he has had no change in diet. He is on a low carb diet due to his diabetes. He does state that his blood sugars have increased since the holidays 2 months ago. Prior Treatments and Tests Rheumatology testing 2 months ago were negative, all tests were normal. Pt reports X-rays of shoulder showed bilateral calcific tendinitis. Future Testing and Treatments Planned None. Developmental History Developmental History Family MD. Fajardo. Treatment Goals Patient/Caregiver Goals Goal: turn off bedside light without pain, open a jar without pain. ADLS without pain (dressing). Prior Functional Status Baseline Function- ADL's Independent Baseline Function- Mobility Independent Current Functional Impairments (Reported) Functional Limitations- ADL's Dressing, carrying objects, opening jars, activities that involve use of hand Personal Factors Other Personal Factors That May Effect Family physician Therapy/Recovery Diabetes type II PT-OP-C Subjective Start: 06/29/18 16:02 Freq: Status: Active Protocol: Document 09/17/18 09:05 LRN (Rec: 09/17/18 09:50 LRN [id number]) OP-PT Subjective Patient Comments Patient Comments States he took some vitamens and has felt stronger. He hasn't asked for an EMG study. States he doesn't have pain in the shoulders. Can't open jars. 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 Has full awning installer motion. R Shoulder has dramatically improved. Hand is stiff, intermittent pain. PT-OP-E Functional Tests Start: 06/29/18 16:02 Freq: Status: Active Protocol: Document 09/10/18 09:00 DCW (Rec: 09/10/18 09:19 DCW [id number]) Functional Tests Apley's Scratch Test Action 2- Left C6 Action 2- Right T1 Action 3- Left L3 Action 3- Right L1 PT-OP-F Manual Assessment Start: 06/29/18 16:02 Freq: Status: Active Protocol: Document 07/02/18 09:03 LRN (Rec: 07/02/18 16:20 LRN [id number]) Manual Assessments Joint Mobility Assessment Joint Mobility Assessment Hyper mobility of L Glenohumeral joint. Decreased mobility of Thoracic upper spine. Decreased mobility of finger and thumb joints (MCP's, PIP's , DIP's), Decreased mobility of wrist joints. PT-OP-H Neuro Start: 06/29/18 16:02 Freq: Status: Active Protocol: Document 07/02/18 09:03 LRN (Rec: 07/02/18 16:20 LRN [id number]) Sensation Evaluation Gross Sensation Gross Sensation WNL Deep Tendon Reflex & Clonus Assessment Deep Tendon Reflex Right Brachioradialis Deep Tendon Reflex 0 Absent Right Bicep Deep Tendon Reflex 0 Absent Left Brachioradialis Deep Tendon Reflex 1+ Diminished Left Bicep Deep Tendon Reflex 1+ Diminished Bilateral Tricep Deep Tendon Reflex 0 Absent PT-OP-J Posture/Palpation/Skin Start: 06/29/18 16:02 Freq: Status: Active Protocol: Document 07/02/18 09:03 LRN (Rec: 07/02/18 16:20 LRN [id number]) Posture Evaluation Comments Posture Comments Low L shoulder & scapula, decreased curvature of cervical, thoracic and lumbar spine. Flattened upper thoracic spine with notable Dowagers hump. Mild forward head, arms in internal rotation. PT-OP-K Range of Motion Start: 06/29/18 16:02 Freq: Status: Active Protocol: Document 09/17/18 09:05 LRN (Rec: 09/17/18 12:21 LRN [id number]) Finger Goniometric Range of Motion Finger ROM Limitations Finger ROM Limitations Soft Tissue Tightness,Muscle Weakness Comments Limited finger flexion: R hand: ~5% digits 2, 3 L hand: ~10% digits 2, 3 L thumb limited with Opposition to little finger. PT-OP-L Special Tests Start: 06/29/18 16:02 Freq: Status: Active Protocol: Document 07/16/18 08:17 LRN (Rec: 07/16/18 15:18 LRN [id number]) Special Tests Cervical Spine Special Tests Vertebral Artery Test Results Negative bilaterally Comments Testing on the R limited due to scalene tightness PT-OP-M Strength Start: 06/29/18 16:02 Freq: Status: Active Protocol: Document 09/17/18 09:05 LRN (Rec: 09/17/18 12:21 LRN [id number]) Hand It Security Consultant/Pinch Strength Hand Dominance Hand Dominance Right Hand Strength Right Comments 3 Trials: 27, 24, 22 kgs Pt holds breath and forearm quivers during gripping. Left Comments 3 Trials: 28, 28, 28 kgs Pt holds breath and forearm quivers during gripping. PT-OP-T Assessment and Plan Start: 06/29/18 16:02 Freq: Status: Active Protocol: Document 05/06/19 16:52 LRN (Rec: 05/06/19 16:56 LRN [id number]) Physical Therapy Assessment Goals Wrist/hand strength Impairment Decreased wrist/hand strength. Short Term Goal (STG) Pt will be independent on wrist/hand strengthening HEP STG Duration Met Retirement Goal (LTG) Improve forearm/wrist/awning installer strength such that the pt will be able to remove jar lids with mild difficulty. LTG Duration 10/01/18 Finger mobility Impairment Decreased finger mobility by 25-50% bilaterally (L>R) Awning Hanger Goal (LTG) Improve finger flexion mobility of digits 1-5 to normal PROM with end-range stiffness so the pt can awning installer jar lids at home without increased pain. LTG Duration 10/01/18 Wrist PROM Impairment Decreased bilateral wrist mobility (L>R) Short Term Goal (STG) Pt will be independent on an initial HEP to restore wrist/ forearm mobility. STG Duration Met Retirement Goal (LTG) Improve wrist and shoulder mobility such that the pt will be able to turn off his bedside light without pain. LTG Duration 10/01/18 Shoulder ROM Impairment Decreased AROM Short Term Goal (STG) Pt will be independent on a ROM HEP for the shoulders. STG Duration Met Retirement Goal (LTG) Improve bilateral shoulder mobility such that the pt will be able to don jacket and clothes with pain no greater than 1/10. LTG Duration 10/01/18 Assessment Summary Assessment Pt was last seen 09/17/18. Per phone conversation he did not return because he was feeling pretty good. He states his shoulder is fine and that his awning installer strength has improved and he feels his mobility is good . Pt was unavailable for final measurements. Physical Therapy Plan Discharge Physical Therapy Discharge Reasons No Longer Attending PT Discharge Comments Per phone conversation pt appears to have no complaints with his shoulder mobility and is happy with his current condition. No further therapy is planned. Thank you for your referral.
== END 2019-05-09 11:00 ==
LOC: PHYS 09:00
PROVIDERS: PCP Specialist; Visit Provider Specialist
DX: M79.643 Pain in unspecified hand (principal); M75.30 Calcific tendinitis of unspecified shoulder
CPT/HCPCS: 97035; 97110; 97140; 97162; 97535